=== PATIENT | female | born 1960 | race Caucasian/White ===

== ENCOUNTER 2023-05-22 07:03 | Day surgery (SDC) | payer MEDICARE, BC ==
--- NOTE | 2023-05-22 07:40 | P.GSHP ---
History of Present Illness H&P Date: 05/22/23 CHIEF COMPLAINT: GERD and colon screen HISTORY OF PRESENT ILLNESS: The patient is a 62-year-old female who presents with gastroesophageal reflux disease and need for colon screen. Upper and lower endoscopy were offered for further evaluation and management. PAST MEDICAL HISTORY: Please see list. PAST SURGICAL HISTORY: Please see list. MEDICATIONS: Please see list. ALLERGIES: Please see list. SOCIAL HISTORY: No illicit drug use FAMILY HISTORY: No reports of Crohn disease or ulcerative colitis. REVIEW OF ORGAN SYSTEMS: CONSTITUTIONAL: No reports of fevers or chills. GI: Denies any blood in stools or constipation. PHYSICAL EXAM: VITAL SIGNS: Stable GENERAL: Well-developed pleasant in no acute distress. HEENT: No scleral icterus. Extraocular movements grossly intact. Moist buccal mucosa. NECK: Supple without lymphadenopathy. CHEST: Unlabored respirations. Equal bilateral excursions. CARDIOVASCULAR: Regular rate and rhythm. Distal 2+ pulses. ABDOMEN: Soft, nondistended. MUSCULOSKELETAL: No clubbing, cyanosis, or edema. ASSESSMENT: 1. Gastroesophageal reflux disease 2. Colon screen. PLAN: 1. Recommend proceeding with an upper and lower endoscopy Past Medical History Past Medical History: Chest Pain / Angina, Heart Failure, GERD/Reflux, Osteoarthritis (OA), Sleep Apnea/CPAP/BIPAP, Thyroid Disorder Additional Past Medical History / Comment(s): deviated angina,diastolic CHF(states "heart not enlarged"),monitoring blood sugars, b/p runs low pre cancer cervix, uses cpap, slightly elevated liver enzymes meds were adjusted by pcp will be getting re check soon History of Any Multi-Drug Resistant Organisms: None Reported Past Surgical History: Adenoidectomy, Bariatric Surgery, Heart Catheterization, Hysterectomy, Joint Replacement, Tonsillectomy Additional Past Surgical History / Comment(s): heart cath x2,D&C x2,gastric bypass 1999, lft total knee, jhoana cataracts with lens implants, Past Anesthesia/Blood Transfusion Reactions: No Reported Reaction Additional Past Anesthesia/Blood Transfusion Reaction / Comment(s): no hx blood transfusion Smoking Status: Former smoker - Past Family History Mother Family Medical History: Cancer Medications and Allergies Home Medications Medication Instructions Recorded Confirmed Type Aspirin 81 mg PO DAILY 09/11/19 05/22/23 History DULoxetine HCL [Cymbalta] 60 mg PO HS 09/11/19 05/22/23 History Docusate [Colace] 100 mg PO BID PRN 09/11/19 05/22/23 History Gabapentin 300 mg PO BID 09/11/19 05/22/23 History Isosorbide Mononitrate [Isosorbide 30 mg PO QAM 09/11/19 05/22/23 History Mononitrate ER] Levothyroxine Sodium [Synthroid] 75 mcg PO MOTUWETHFRSA 09/11/19 05/22/23 History Lovastatin [Mevacor] 40 mg PO HS 09/11/19 05/22/23 History Nitroglycerin Sl Tabs [Nitrostat] 0.4 mg SUBLINGUAL Q5M PRN 09/18/19 05/20/23 History Ergocalciferol [Vitamin D2 (1250 1,250 mcg PO WE 07/20/21 05/22/23 History Mcg = 62278 Iu)] Magnesium 250 mg PO BID 07/20/21 05/22/23 History Acetaminophen Tab [Tylenol Tab] 1,000 mg PO Q6HR PRN #30 tablet 07/21/21 05/22/23 Rx Diclofenac Sodium [Voltaren] 100 mg PO DAILY 05/20/23 05/22/23 History Gabapentin 300 mg PO 1200 PRN 05/20/23 05/22/23 History Gabapentin 600 mg PO HS 05/20/23 05/22/23 History Lactulose 10 gm PO ONCE 05/20/23 05/22/23 History Sennosides [Senokot] 8.6 mg PO BID 05/22/23 05/22/23 History Allergies Allergy/AdvReac Type Severity Reaction Status Date / Time latex Allergy skin Verified 05/22/23 07:30 redness and blisters amoxicillin [From Augmentin] AdvReac severe Verified 05/22/23 07:30 yeast infection clavulanic acid AdvReac severe Verified 05/22/23 07:30 [From Augmentin] yeast infection metoprolol AdvReac CHF Verified 05/22/23 07:30
[2023-05-22] MEDS: LACTATED RINGERS 1,000 ML IV SCH (07:44)
[2023-05-22 08:02] VITALS: TEMP 97.6
[2023-05-22] MEDS ORDERED: PROPOFOL 10 MG/ML 20 ML VIAL IV ONE (08:15)
[2023-05-22] MEDS ORDERED: LIDOCAINE 2% (PF) 20 MG/ML 5 ML VIAL ONE (08:15)
[2023-05-22 09:28] VITALS: BP 112/70; PULSE 78; RESP 18
--- NOTE | 2023-05-22 09:53 | P.PCN ---
Date of Procedure: 05/22/23 Description of Procedure: PREOPERATIVE DIAGNOSIS: Colonoscopy screening. History of poor prep POSTOPERATIVE DIAGNOSIS: Colonoscopy screening. Diverticulosis, scattered. Poor prep OPERATION: Colonoscopy to the cecum, ileocecal valve and appendiceal orifice. SURGEON: Aan Kaye MD. ANESTHESIA: MAC. INDICATIONS: The patient is a 62-year-old female who presents for colonoscopy screening. Attempted colonoscopy 5 years. She reports prior attempts were nondiagnostic and unsuccessful due to poor prep. Patient was placed on laxatives including GoLytely prep. Benefits and risks were described and informed consent was obtained. DESCRIPTION OF PROCEDURE: The patient had undergone GoLytely prep and lactulose. The patient had been brought into the operating room and laid in the left lateral decubitus position. After adequate intravenous sedation, the rectum was examined with 2% lidocaine jelly. No external hemorrhoids were encountered. The rectal tone was within normal limits. No lesions were palpated in the rectal vault. An Olympus colonoscope was advanced until the cecum, ileocecal valve and appendiceal orifice were clearly viewed. The prep was poor with semisolid stool and liquid stool coating the mucosa limiting view. Moderate colonic irrigation and lavage was performed to see the mucosal handy. Scattered diverticulosis was encountered. No colonic polyps over 1 cm were found. No evidence of focal colitis was found. Retroflexion of the scope demonstrated grade 1 internal hemorrhoids without active bleeding or inflammation. The colon was desufflated. The patient had tolerated the procedure well. Withdrawal time was over 6 minutes. FINDINGS: Aronchick preparation quality scale 4 (1-5) Internal hemorrhoids, grade 1 No external prolapsed hemorrhoids. No arteriovenous malformations. No adenomatous polyps. No focal colitis. Moderate colonic lavage performed due to poor prep RECOMMENDATIONS: Lower endoscopy in 3 years2026 Patient reports eating high-fiber diet prior to colonoscopy. Recommend off all fiber diet 1 week prior to colonoscopy Recommend increase lactulose 30 mg twice daily 1 week prior to colonoscopy Plan - Discharge Summary Discharge Rx Participant: No New Discharge Prescriptions: Continue Docusate [Colace] 100 mg PO BID PRN PRN Reason: Constipation Lovastatin [Mevacor] 40 mg PO HS Aspirin 81 mg PO DAILY Levothyroxine Sodium [Synthroid] 75 mcg PO MOTUWETHFRSA Gabapentin 300 mg PO BID DULoxetine HCL [Cymbalta] 60 mg PO HS Isosorbide Mononitrate [Isosorbide Mononitrate ER] 30 mg PO QAM Nitroglycerin Sl Tabs [Nitrostat] 0.4 mg SUBLINGUAL Q5M PRN PRN Reason: Chest Pain Ergocalciferol [Vitamin D2 (1250 Mcg = 78222 Iu)] 1,250 mcg PO WE Acetaminophen Tab [Tylenol] 1,000 mg PO Q6HR PRN #30 tablet PRN Reason: Pain Lactulose 10 gm PO ONCE Diclofenac Sodium [Voltaren] 100 mg PO DAILY Magnesium 250 mg PO BID Gabapentin 300 mg PO 1200 PRN PRN Reason: Pain Gabapentin 600 mg PO HS Sennosides [Senokot] 8.6 mg PO BID Discharge Medication List Aspirin 81 mg PO DAILY 09/11/19 [History] DULoxetine HCL [Cymbalta] 60 mg PO HS 09/11/19 [History] Docusate [Colace] 100 mg PO BID PRN 09/11/19 [History] Gabapentin 300 mg PO BID 09/11/19 [History] Isosorbide Mononitrate [Isosorbide Mononitrate ER] 30 mg PO QAM 09/11/19 [History] Levothyroxine Sodium [Synthroid] 75 mcg PO MOTUWETHFRSA 09/11/19 [History] Lovastatin [Mevacor] 40 mg PO HS 09/11/19 [History] Nitroglycerin Sl Tabs [Nitrostat] 0.4 mg SUBLINGUAL Q5M PRN 09/18/19 [History] Ergocalciferol [Vitamin D2 (1250 Mcg = 01175 Iu)] 1,250 mcg PO WE 07/20/21 [History] Magnesium 250 mg PO BID 07/20/21 [History] Acetaminophen Tab [Tylenol] 1,000 mg PO Q6HR PRN #30 tablet 07/21/21 [Rx] Diclofenac Sodium [Voltaren] 100 mg PO DAILY 05/20/23 [History] Gabapentin 300 mg PO 1200 PRN 05/20/23 [History] Gabapentin 600 mg PO HS 05/20/23 [History] Lactulose 10 gm PO ONCE 05/20/23 [History] Sennosides [Senokot] 8.6 mg PO BID 05/22/23 [History] Follow up Appointment(s)/Referral(s): Ana Kaye MD [STAFF PHYSICIAN] - 04/23/24 11:30 am Patient Instructions/Handouts: *Surgery [facility] - (Anesthesia) Discharge Instructions Outpatient Surgery, Diverticulosis (DC), Diverticulosis Diet (GEN), Colonoscopy (DC), Upper Endoscopy (DC) Activity/Diet/Wound Care/Special Instructions: Repeat colonoscopy 3 years, 2026 Discharge Disposition: HOME SELF-CARE
--- NOTE | 2023-05-22 10:11 | P.PCN ---
Date of Procedure: 05/22/23 Description of Procedure: PREOPERATIVE DIAGNOSES: 1. Diaphragmatic hiatal hernia 2. Gastritis 3. History of Lorena-en-Y gastric bypass POSTOPERATIVE DIAGNOSES: 1. Diaphragmatic hiatal hernia 2. Gastritis 3. History of Lorena-en-Y gastric bypass PROCEDURE PERFORMED: Esophagogastrojejunoscopy with biopsies on the gastric pouch, esophagus, jejunum SURGEON: Ana Kaye MD ANESTHESIA: MAC. INDICATIONS: The patient is a 62-year-old female with prior history of Lorena-en-Y gastric bypass perform an outside institution. She presents with hiatal hernia. With her history of Lorena-en-Y gastric bypass, upper endoscopy was offered for further evaluation and management. Benefits and risks described. Informed consent was obtained. DESCRIPTION: Patient was brought to the endoscopy suite and laid in the left lateral decubitus position. After adequate IV sedation, a bite block was placed. An Olympus gastroscope was passed along the posterior oropharynx down to the distal esophagus where the squamocolumnar junction was found at approximately 38 cm from the incisors. The diaphragmatic hiatus was found at 40 cm from the incisors. Her anastomosis was found at 42 cm, consistent with approximately 4 cm gastric pouch. A diaphragmatic hiatal hernia of 2 cm was confirmed. No evidence of foreign body was found. No active gastrojejunal ulceration was encountered. Biopsies along the gastric pouch. The scope was passed to 60 cm of the [place] limb. No remnant of blind jejunal limb was retained. The GI tract was desufflated. The patient tolerated the procedure well. FINDINGS: 1. No acute gastrojejunal ulceration 2. No foreign body found along the anastomosis. 3. No elongated jejunal blind pouch. 4. Squamocolumnar junction at 38 cm from the incisors. 5. Diaphragmatic hiatus at 40 cm from the incisors. 6. Hiatal hernia 2 cm fixed. 7. Anastomosis at 42 cm from the incisors. 8. Gastric pouch 4 cm. 9. Chronic gastritis of the gastric pouch. 10. Biopsies obtained of esophagus, jejunum and gastric pouch PLAN: 1. Upper endoscopy as needed
== END 2023-05-22 10:00 | disposition home or self-care (01) ==
LOC: ORWHC2ENDO 07:03 → MERGE 08:05 → ORWHC2ENDO 10:00
PROVIDERS: ATTEND Surgery Plastic and Reconstructive Surgery
DX: Z12.11 Encounter for screening for malignant neoplasm of colon (principal); K29.50 Unspecified chronic gastritis without bleeding; K64.0 First degree hemorrhoids; K21.9 Gastro-esophageal reflux disease without esophagitis; K44.9 Diaphragmatic hernia without obstruction or gangrene; G47.30 Sleep apnea, unspecified; M19.90 Unspecified osteoarthritis, unspecified site; Z79.1 Long term (current) use of non-steroidal anti-inflammatories (NSAID); Z79.82 Long term (current) use of aspirin; Z87.891 Personal history of nicotine dependence; Z88.0 Allergy status to penicillin; Z88.1 Allergy status to other antibiotic agents; Z91.040 Latex allergy status; Z98.84 Bariatric surgery status; Z90.710 Acquired absence of both cervix and uterus; Z79.899 Other long term (current) drug therapy
CPT/HCPCS: 88305; 43239; J2704; J2001; G0121